=== PATIENT | male | born 1990 | race Caucasian/White ===

== ENCOUNTER 2019-04-18 06:34 | Day surgery (SDC) | payer SELFPAY ==
[~2019-04-18] VITALS: Ht 190.5 cm; Wt 145.5 kg
[2019-04-18 07:50] VITALS: BP 141/82; PULSE 67; TEMP 97.8
[2019-04-18 11:15] VITALS: BP 108/61; PULSE 70; TEMP 97.8
--- NOTE | 2019-04-18 11:15 | NUR ---
Pt returned from PACU to [facility]. A&O. VSS-see flowsheet. RLE elevated with ice pack in place. Splint clean, dry and intact. Pt can not wiggle toes at this time. Toes are warm with capillary refill WNL. Reports not having pain but feeling "achy, throb" feeling in right foot. Requested apple juice and muffin. Side rails up, call light in reach. Family brought to room to visit.
[2019-04-18 11:21] VITALS: TEMP 97.7
[2019-04-18 11:30] VITALS: BP 140/81; PULSE 72
--- NOTE | 2019-04-18 11:40 | NUR ---
Pt given 2 tabs of norco per orders for rating discomfort in RLE at a 5-6/10.
[2019-04-18 11:45] VITALS: BP 126/75; PULSE 72
[2019-04-18 12:00] VITALS: BP 129/83; PULSE 80
[2019-04-18] MEDS ORDERED: NORCO 325 MG-7.1 TAB PO (12:05)
[2019-04-18] MEDS ORDERED: ULTRAM 50MG TAB50 MG PO (12:07)
[2019-04-18] MEDS ORDERED: PHENERGAN 25 TA25 MG PO (12:07)
--- NOTE | 2019-04-18 12:47 | NUR ---
Pt tolerated juice and muffin. VS remain stable. Voided without difficulty. Discomfort improved. IV removed with pressure dressing applied. Pt dressed self. Discharge teaching completed, pt and family verbalized understanding. Pt able to pivot transfer to wheelchair on LLE, NWB on RLE. Taken via wheelchair to private vehicle for dc home with mom or sister to drive. Pt in vehicle with RLE elevated and ice pack applied. Sent with dc packet.
== END 2019-04-18 12:47 | disposition home or self-care (01) ==
LOC: SDCO 06:34
DX: S92.341A Displaced fracture of fourth metatarsal bone, right foot, initial encounter for closed fracture (principal); Q66.11 Congenital talipes calcaneovarus, right foot; Z88.5 Allergy status to narcotic agent; Z90.49 Acquired absence of other specified parts of digestive tract; K21.9 Gastro-esophageal reflux disease without esophagitis
CPT/HCPCS: C1713; J2250; J2704; J2795; J7120